=== PATIENT | female | born 1990 | race Caucasian/White ===

== ENCOUNTER 2021-07-20 02:51 | Emergency (ER) | payer OTHER ==
[2021-07-20] MEDS ORDERED: DIPHTH,PERTUSS(ACELL),TET 0.5 ML DISP.SYRIN IM ONE ×2 (03:05→03:24)
[2021-07-20 03:21] VITALS: BP 152/99; PULSE 99; TEMP 99; BMI 20.3
== END 2021-07-20 03:34 | disposition home or self-care (01) ==
LOC: FER 02:51
PROC: 3E0234Z Introduction of Serum, Toxoid and Vaccine into Muscle, Percutaneous Approach (ICD-10-PCS; principal; 2021-07-20)
DX: S10.91XA Abrasion of unspecified part of neck, initial encounter (principal); W50.4XXA Accidental scratch by another person, initial encounter; Y35.891A Legal intervention involving other specified means, law enforcement official injured, initial encounter; Z77.21 Contact with and (suspected) exposure to potentially hazardous body fluids
CPT/HCPCS: 90715; 99284-25

== ENCOUNTER 2022-04-16 11:11 | Emergency (ER) | payer OTHER ==
[2022-04-16 11:20] VITALS: RESP 18; BMI 24.0
[2022-04-16 12:53] VITALS: BP 131/84; PULSE 74; TEMP 98.2
[2022-04-16] MEDS ORDERED: LACTATED RINGERS SOLUTION 1,000 ML/1,000 ML INFUS.BAG IV STA (13:12)
== END 2022-04-16 15:50 | disposition home or self-care (01) ==
LOC: JERFT 11:11 → JER 11:11
DX: O9A.213 Injury, poisoning and certain other consequences of external causes complicating pregnancy, third trimester (principal); M25.531 Pain in right wrist; M25.561 Pain in right knee; W19.XXXA Unspecified fall, initial encounter; Z3A.32 32 weeks gestation of pregnancy
CPT/HCPCS: 99283-25; 99284-25